=== PATIENT | male | born 1970 | race Caucasian/White ===

== ENCOUNTER 2017-07-16 13:46 | Emergency (ER) | payer OTHER, MEDICARE, MEDICAID ==
[~2017-07-16] VITALS: Ht 182.8 cm; Wt 97.5 kg
[~2017-07-16 13:46] MED LIST: AMOXICILLIN500 MG PO; CIPRODEX 0.3%-7.5 ML OT; FLEXERIL10 MG PO; MOTRIN800 MG PO; NAPROSYN500 MG PO; NORCO 325 MG-101 TAB PO; SINGULAIR10 MG PO; TRAMADOL HCL50 MG PO; TRIMOX500 MG PO
[2017-07-16 13:59] VITALS: BP 145/95
== END 2017-07-16 14:51 | disposition home or self-care (01) ==
LOC: ED 13:46
DX: S49.81XA Other specified injuries of right shoulder and upper arm, initial encounter (principal); F17.200 Nicotine dependence, unspecified, uncomplicated; Z79.899 Other long term (current) drug therapy; X58.XXXA Exposure to other specified factors, initial encounter; Y93.89 Activity, other specified; Y92.89 Other specified places as the place of occurrence of the external cause; Y99.8 Other external cause status

== ENCOUNTER → 2017-11-08 | Outpatient (CLI) | payer MEDICARE | END | disposition home or self-care (01) | LOC: RAD 18:57 | DX: J98.11 Atelectasis (principal); R06.02 Shortness of breath; R09.89 Other specified symptoms and signs involving the circulatory and respiratory systems; R91.1 Solitary pulmonary nodule; Z87.891 Personal history of nicotine dependence ==

== ENCOUNTER 2018-05-22 12:09 | Emergency (ER) | payer MEDICARE, MEDICAID ==
[~2018-05-22] VITALS: Ht 182.8 cm; Wt 99.8 kg
[2018-05-22 12:23] VITALS: BP 129/87
[2018-05-22] MEDS ORDERED: AUGMENTIN 500500 MG PO (12:34)
[2018-05-22] MEDS ORDERED: ZOFRAN4 MG PO (12:34)
[2018-05-22] MEDS ORDERED: Peridex 473 ML473 ML PO (12:34)
[2018-05-22] MEDS ORDERED: NAPROSYN500 MG PO (12:34)
== END 2018-05-22 13:00 | disposition home or self-care (01) ==
LOC: ED 12:09
DX: K04.7 Periapical abscess without sinus (principal); R03.0 Elevated blood-pressure reading, without diagnosis of hypertension

== ENCOUNTER 2019-12-11 08:01 | Emergency (ER) | payer BC ==
[~2019-12-11] VITALS: Ht 182.8 cm; Wt 99.8 kg
[~2019-12-11 08:01] MED LIST changes: +AUGMENTIN 500500 MG PO; +Peridex 473 ML473 ML PO; +ZOFRAN4 MG PO
[2019-12-11 08:30] LABS: BASO % 0.4 % (0.0-1.0); EOS # 0.4 10*3/uL (0.0-0.4); EOS % 4.3 % (1.0-4.0); LYMPH # 2.9 10*3/uL (1.3-4.4); MEAN CELL VOLUME 88.6 fl (80.0-94.0); MEAN CORPUSCULAR HGB 29.7 pg (27.0-31.0); MEAN CORPUSCULAR HGB CONC 33.6 g/dl (33.0-37.0); MEAN PLATELET VOLUME 11.5 fl (9.6-12.3); MONO # 0.6 10*3/uL (0.1-1.0); NEUT % 56.1 % (47.0-73.0); PLATELET COUNT AUTOMATED 168 10*3/uL (130-400); RED BLOOD COUNT 5.08 10*6/uL (4.50-5.90); RED CELL DISTRI WIDTH 12.3 % (0-14.5); WHITE BLOOD COUNT 8.9 10*3/uL (4.8-10.8)
[2019-12-11 08:56] LABS: ALBUMIN 3.4 gm/dl (3.1-4.5); ALKALINE PHOSPHATASE 78 U/L (45-117); BUN 5 mg/dl (7-24); CHLORIDE 109 mmol/L (98-107); CREATININE 0.87 mg/dL (0.70-1.30); POTASSIUM 3.6 mmol/L (3.5-5.1); SGOT/AST 15 IU/L (3-35); SGPT/ALT 27 U/L (12-78); SODIUM 138 mmol/L (136-145); TOTAL PROTEIN 7.7 gm/dL (6.4-8.2)
[2019-12-11 09:01] LABS: TROPONIN I < 0.015 ng/ml (<0.045)
[2019-12-11 09:16] LABS: BILIRUBIN NEGATIVE (NEGATIVE); CLARITY CLEAR (CLEAR); COLOR YELLOW (YELLOW); GLUCOSE NEGATIVE (NEGATIVE); KETONE NEGATIVE (NEGATIVE)
[2019-12-11 09:17] LABS: BACTERIA TRACE; BLOOD TRACE-INTACT (NEGATIVE); EPITHELIAL CELLS 0-2; LEUKO ESTERASE NEGATIVE (NEGATIVE); NITRITE NEGATIVE (NEGATIVE); RBC 0-2 rbc/hpf (0-2); UROBILINOGEN 0.2 E.U./dl (0.2-1.0); WBC 0-2 wbc/hpf (0-5)
[2019-12-11 09:58] VITALS: BP 136/65
== END 2019-12-11 10:15 | disposition home or self-care (01) ==
LOC: ED 08:01
PROVIDERS: Emergency Medicine
DX: R42 Dizziness and giddiness (principal); F17.200 Nicotine dependence, unspecified, uncomplicated